=== PATIENT | male | born 1960 | race Asian ===

== ENCOUNTER → 2019-08-18 17:31 | Outpatient (CLI) | payer OTHER, SELFPAY ==
--- NOTE | 2019-08-18 17:36 | DI.MRI.S_ITS ---
PROCEDURE: MR SHOULDER RT WO CON INDICATIONS: PAIN IN RIGHT SHOULDER TECHNIQUE: Noncontrast oblique coronal T2 fast spin echo with fat saturation, oblique sagittal T1 spin echo and T2 fast spin echo with fat saturation, axial T1 spin echo and T2 fast spin echo with fat saturation through the shoulder. COMPARISON: None. FINDINGS: Image quality: Excellent. Rotator cuff: Post surgical changes are noted in greater tuberosity of humeral head from prior rotator cuff tendon repair. Tendinosis and low to moderate grade articular and bursal surface partial-thickness tear involving distal supraspinatus at its insertion the humeral head is seen extending to musculotendinous junction. Distal infraspinatus and subscapularis tendinosis is seen. No full-thickness rotator cuff tendon rupture. Sagittal images demonstrate no significant muscle atrophy. Bones and bursae: No bone marrow contusions or fractures. Postsurgical widening of acromioclavicular joint is seen. Small amount of subacromial subdeltoid bursal fluid and glenohumeral joint fluid is seen. No gross intra-articular loose body. Capsule and soft tissues: In the absence of intra-articular contrast, the labrum and glenohumeral ligaments appear intact. The long head of the biceps tendon demonstrates normal location and morphology. The rotator interval appears normal, without fibrosis. The coracohumeral ligament is normal in thickness. IMPRESSION: 1. Postsurgical changes from prior rotator cuff tendon repair. Expected postsurgical widening of the acromioclavicular joint. No acute fracture or dislocation. 2. Tendinosis and low to moderate grade articular and bursal surface partial-thickness tear involving distal supraspinatus extending to musculotendinous junction. Distal infraspinatus and subscapularis tendinosis. No full-thickness rotator cuff tendon rupture. 3. No evidence of focal labral tear. Dictated by: Rickie Pineda M.D. on 08/19/2019 at 9:06 Approved by: Rickie Pineda M.D. on 08/19/2019 at 9:10
== END ==
DX: M25.511 Pain in right shoulder (principal); M75.111 Incomplete rotator cuff tear or rupture of right shoulder, not specified as traumatic
CPT/HCPCS: 73221

== ENCOUNTER 2021-10-17 08:08 | Day surgery (SDC) | payer OTHER, SELFPAY ==
--- NOTE | 2021-10-17 | PATH_ITS ---
[facility] Accession Number: [id number] . 01 Material submitted: . PART A: colon - ASCENDING COLON PART B: cecum - CECUM . 01 Diagnosis: A. Ascending Colon, Biopsy: Tubular adenoma. . B. Cecum, Biopsy: Tubular adenoma. MRV 10/19/2021 1410 Local . 01 Electronically signed: . Nelia Rogers MD, Pathologist NPI- [id number] . 01 Gross description: . Part A: ASCENDING COLON: Received in formalin are 2 fragment(s) of corrigan, soft tissue measuring 0.3 x 0.3 x 0.2 cm to 0.3 x 0.3 x 0.3 cm submitted entirely in 1 cassette(s) Part B: CECUM: Received in formalin are 2 fragment(s) of corrigan, soft tissue measuring 0.2 x 0.2 x 0.2 cm to 0.3 x 0.3 x 0.2 cm submitted entirely in 1 cassette(s) /KAVITA 10/18/2021 0149 Local . 01 Pathologist provided ICD-10: D12.0, D12.2 . 01 CPT . 608077, 924571 Specimen Comment: A courtesy copy of this report has been sent to [phone] Performed at: 01 [facility] [address] [place] [address] [address], [place], [place] [id number] MD Jez Kilpatrick MD Phone: [phone]
[2021-10-17 08:23] VITALS: BMI 28.8
[2021-10-17 08:33] VITALS: BP 144/85; PULSE 71; RESP 16; O2SAT 96
[2021-10-17 08:40] LABS: COVID19 -Nasal RAPID Negative (Negative)
[2021-10-17] MEDS: LACTATED RINGERS 1,000 ML 150 ML IV (08:44)
--- NOTE | 2021-10-17 09:26 | PM.HP.1 ---
History of Present Illness History of Present Illness Date Patient Seen: 10/17/21 Time Patient Seen: 09:26 Chief complaint: SDC Narrative: The patient presents for colorectal screening. Most recent colonoscopy 10 years ago normal. No personal or family history of colon cancer. On further history denies any recent gastrointestinal symptoms. No nausea, vomiting, abdominal pain, loss of appetite, unexplained weight loss, change in bowel habits, diarrhea, constipation, melena, hematochezia, or bright red blood per rectum. Patient History Medical History HTN (hypertension) Family & Social History Social History: household members spouse Tobacco & Substance use: Smoking Status Never smoker alcohol intake current alcohol intake frequency holiday/special occasion Substance Use Type does not use Meds Home Medications and Allergies Home Medications Medication Instructions Recorded Confirmed Type amlodipine 5 mg tablet (Norvasc) ##0 10/27/15 History atorvastatin 20 mg tablet (Lipitor) ##0 10/27/15 History meclizine 25 mg tablet 25 mg PO Q6HP PRN #20 tabs 10/27/15 Rx multivitamin (Multiple Vitamins ##0 10/27/15 History tablet) tadalafil 10 mg tablet (Cialis) ##0 10/27/15 History sodium,potassium,mag sulfates 17.5 See Rx Instructions PO .COMPLEX 09/20/21 Rx gram-3.13 gram-1.6 gram oral soln #354 mL (Suprep Bowel Prep Kit) ondansetron 4 mg disintegrating 4 mg sublingual Q6HP PRN Nausea 10/17/21 History tablet Allergies Allergy/AdvReac Type Severity Reaction Status Date / Time No Known Drug Allergies Allergy Verified 10/17/21 08:37 Exam Vital Signs (past 8 hours): - 10/17/21 08:33 Pulse Rate 71 Respiratory Rate 16 Blood Pressure 144/85 H Pulse Oximetry 96 Oxygen Delivery Method Room Air Oxygen Delivery Method Room Air Narrative Exam Narrative: General adult male alert oriented no acute distress Abdomen soft nontender nondistended Objective Labs Labs: Laboratory Results - last 24 hr 10/17/21 08:22 SARS-CoV-2 (PCR) Negative Assessment & Plan Assessment and plan (1) Screening for colon cancer: Status: Acute Assessment & Plan narrative: The patient requires colorectal screening and colonoscopy is recommended. Technical details were discussed. Risks, benefits, alternatives explained. Risks including but not limited to myocardial infarction, aspiration, bleeding, pain, missed lesion, incomplete examination, need for further radiographic studies, colonic perforation, and need for major abdominal surgery were discussed. All questions were answered to their satisfaction, and they are in agreement with this plan. Time Spent With Patient Critical Care time: I spent a total of [] minutes of critical care time on this patient's care today; this time is exclusive of procedural time.
--- NOTE | 2021-10-17 09:33 | P.OP.COLON_ITS ---
Operative Date/Time/Diagnoses Date of procedure: 10/17/21 Time of procedure: 09:33 Pre-op diagnosis: Screening Post-op diagnosis: same Procedure & Clinicians Study performed: Colonoscopy Same procedure as scheduled: Yes Indications: Screening Surgeon: Gary Humphreys Procedure Notes Procedure in detail: Medications: Conscious sedation using 4mg IV midazolam and 100mcg IV of fentanyl The history and physical was performed/updated and the patient is ASA class is 2. The procedure was discussed in detail with the patient. Potential risks complications including infection, bleeding, missed diagnosis, perforation, need for surgery, and were explained. Their questions were answered and informed consent was obtained. Patient was brought to the procedure room and placed standard monitoring equipment. The patient's vital signs were monitored continuously throughout the entire procedure. Prior to starting time-out was performed. The patient was placed in the left lateral recumbent position. Procedural sedation was adminis tered. Examination began with a thorough inspection of the perianal area there was no evidence of fissures, fistulae, external hemorrhoids or cutaneous malignancy. The colonoscopy scope was then placed into the anal canal and was advanced to the cecum, which was identified by the ileocecal valve, the appendiceal orifice and the confluence of the taenia. The scope was then slowly withdrawn examining colon thoroughly in all directions, irrigating it of any residual stool. FINDINGS 1. Ascending colon two 5 mm polyps removed with biopsy forceps 2. Cecum 3 mm polyp removed with biopsy forceps The patient tolerated the procedure well. They will be discharged once criteria are met. The prep was of good/excellent quality. The withdrawl time was 8 minutes. The sedation time was 20 minutes. Specimen(s): other (Ascending colon x2, cecum x1 polyps) Complications: none Impression: Colonic polyps Post-procedure Recommendations: Colonoscopy in 5 years Disposition: same day surgery
[2021-10-17] MEDS: MIDAZOLAM 5 MG/5 ML VIAL IV (09:49)
[2021-10-17] MEDS: fentaNYL 100 MCG/2 ML INJ IV (09:51)
[2021-10-17 10:01] VITALS: BP 128/78; PULSE 64; RESP 12; TEMP 36.1; O2SAT 96
[2021-10-17 10:06] VITALS: BP 117/71; PULSE 50; RESP 12; O2SAT 95
[2021-10-17 10:11] VITALS: BP 121/72; PULSE 50; RESP 12; O2SAT 98
[2021-10-17 10:16] VITALS: BP 122/79; PULSE 60; RESP 18; TEMP 36.4; O2SAT 94
[2021-10-17 10:40] VITALS: BP 131/81; PULSE 77; RESP 16; TEMP 36.5; O2SAT 95
== END 2021-10-17 10:45 | disposition home or self-care (01) ==
PROVIDERS: PCP Family Medicine; Referring Provider Surgery; Visit Provider Surgery
PROC: 0DJD8ZZ Inspection of Lower Intestinal Tract, Via Natural or Artificial Opening Endoscopic (ICD-10-PCS; CPT 45378; principal; 2021-10-17 10:00)
DX: Z12.11 Encounter for screening for malignant neoplasm of colon (principal); Z20.822 Contact with and (suspected) exposure to COVID-19; D12.2 Benign neoplasm of ascending colon; D12.0 Benign neoplasm of cecum
CPT/HCPCS: 45380; 87635; 99152; C9803; J2250; J3010

== ENCOUNTER → 2022-09-24 09:07 | Outpatient (CLI) | payer OTHER, SELFPAY ==
--- NOTE | 2022-09-24 | DI.MRI.S_ITS ---
PROCEDURE: MR KNEE LT WO CON INDICATIONS: PAIN IN LEFT KNEE TECHNIQUE: Noncontrast sagittal PD fast spin echo and T2 fast spin echo with fat saturation, sagittal 3-D FLASH with fat saturation; coronal T1 spin echo and PD fast spin echo with fat saturation, and axial PD fast spin echo with fat saturation through the knee. COMPARISON: None. FINDINGS: Image quality: Excellent. Menisci: There is linear oblique high T2 signal intensity traversing the inner, middle, and peripheral thirds of the posterior horn medial meniscus, demonstrating inferior articular surface extension, indicating oblique tearing. Radial tearing of the medial meniscal body is present. There is linear horizontal high T2 signal intensity within the peripheral 3rd of the lateral meniscal body and posterior horn without definite articular surface extension to indicate tear. Cruciate ligaments: The anterior and posterior cruciate ligaments appear intact. Medial structures: The medial collateral ligament appears intact. Visualized portions of the pes anserinus tendons appear normal. No abnormal bursal fluid. Lateral structures: The lateral collateral ligament, long and short heads of the biceps femoris tendon appear intact. The popliteus tendon appears normal. Iliotibial band appears normal. Anterior structures: The quadriceps and patellar tendons appear intact. Patellar alignment is normal. No femoral trochlear dysplasia or ventral trochlear prominence. No edema in the infrapatellar fat pad. Bones and cartilage: No fractures. There is moderate ill-defined T2 signal elevation within the mid and anterior weight-bearing aspects of the medial tibial plateau. Mild ill-defined T2 signal elevation within the mid weight-bearing aspect of the medial femoral condyle. Mild subchondral degenerative marrow edema within the medial patellar facet and medial femoral trochlea. Mild tricompartmental periarticular osteophyte formation. Moderate articular cartilage loss diffusely overlies the weight-bearing aspects of the medial femoral condyle and medial tibial plateau. Articular cartilage fibrillation overlies the medial and lateral patellar facets. Superimposed high-grade articular cartilage loss overlies the medial aspect of the medial patellar facet. Joint space: There is a moderate knee joint effusion and a trace Webb's cyst. Normal appearing synovial plicae are incidentally noted. IMPRESSION: 1. Tricompartmental osteoarthritis with associated articular cartilage loss. 2. Complex tearing of the medial meniscus. 3. Knee joint effusion and Webb's cyst. Dictated by: Klaus Knight M.D. on 09/24/2022 at 12:09 Approved by: Klaus Knight M.D. on 09/24/2022 at 13:10
== END ==
PROVIDERS: PCP Family Medicine; Referring Provider Family Medicine; Visit Provider Family Medicine
DX: S83.232A Complex tear of medial meniscus, current injury, left knee, initial encounter (principal); M17.12 Unilateral primary osteoarthritis, left knee; M71.22 Synovial cyst of popliteal space [Baker], left knee; M25.462 Effusion, left knee; M23.8X9 Other internal derangements of unspecified knee; M25.562 Pain in left knee
CPT/HCPCS: 73721

== ENCOUNTER → 2023-07-13 10:18 | Outpatient (CLI) | payer MEDICARE, OTHER, SELFPAY ==
--- NOTE | 2023-07-13 | DI.MRI.S_ITS ---
PROCEDURE: MR ELBOW LT W CON INDICATIONS: lt elbow pain TECHNIQUE: Noncontrast coronal proton density fast spin echo and T2 fast spin echo with fat saturation, axial and sagittal T1 spin echo and T2 fast spin echo with fat saturation through the elbow. COMPARISON: None. FINDINGS: Image quality: Excellent. Lateral structures: The lateral ulnar collateral ligament and radial collateral ligament both appear thickened. The overlying common extensor tendon appears thickened with intrasubstance T2 hyperintense signal at its lateral epicondylar insertion. Medial structures: The ulnar collateral ligament appears intact. The overlying common flexor tendon appears normal. The ulnar nerve appears normal in size and signal within the cubital tunnel. Anterior structures: The biceps and brachialis tendons both appear intact as they insert onto the proximal radius and ulna, respectively. No bicipitoradial bursal fluid. The median and radial neurovascular bundles appear normal; no focal muscle atrophy to suggest nerve impingement. Posterior structures: Distal triceps tendinosis is seen at its proximal olecranon insertion. No olecranon bursal fluid. Bone and cartilage: [id number] elbow joint osteoarthritic changes are seen. Subchondral cystic changes are noted involving trochlear with mild edema in medial epicondyle suggestive of osteochondral injuries. Small osteochondral injury involving lateral portion of capitellum at its articulation with radial head is also seen. No fracture or dislocation. IMPRESSION: 1. Osteoarthritic changes in elbow joint with osteochondral injuries involving trochlear with surrounding edema. Small osteochondral injury also noted involving lateral periphery of capitellum. No fracture or dislocation. No significant joint effusion or loose bodies. 2. Suggestion of lateral epicondylitis as above. 3. Distal triceps tendinosis at its proximal olecranon insertion. Dictated by: Rickie Pineda M.D. on 07/15/2023 at 10:39 Approved by: Rickie Pineda M.D. on 07/15/2023 at 10:46
--- NOTE | 2023-07-13 10:21 | DI.MRI.S_ITS ---
PROCEDURE: MR KNEE LT WO CON INDICATIONS: Left knee pain. TECHNIQUE: Noncontrast sagittal PD fast spin echo and T2 fast spin echo with fat saturation, sagittal 3-D FLASH with fat saturation; coronal T1 spin echo and PD fast spin echo with fat saturation, and axial PD fast spin echo with fat saturation through the knee. COMPARISON: [facility], MR, MR KNEE LT WO CON, 09/24/2022, 9:26. FINDINGS: Image quality: Excellent. Menisci: There is oblique tear involving the posterior horn and body of the medial meniscus extending to the inferior articular surface. The body of the medial meniscus is truncated. The lateral meniscus is intact. The meniscal root ligaments appear intact. Cruciate ligaments: The anterior cruciate ligament is thickened with increased T2 signal, likely sequelae of remote partial tear/scarring. The posterior cruciate ligament is intact. Medial structures: The medial collateral ligament appears intact. There is tendinosis of the semimembranosus tendon insertions. The meniscocapsular junction appears intact. Visualized portions of the pes anserinus tendons appear normal. No abnormal bursal fluid. Lateral structures: The lateral collateral ligament, long and short heads of the biceps femoris tendon appear intact. The popliteus tendon appears normal. Iliotibial band appears normal. Anterior structures: The quadriceps and patellar tendons appear intact. Patellar alignment is normal. No femoral trochlear dysplasia or ventral trochlear prominence. No edema in the infrapatellar fat pad. Bones and cartilage: No bone marrow contusions or fractures. Moderate tricompartmental cartilage thinning and fibrillation. There is near cartilage denuded articular surface in the medial femoral condyle with subchondral edema. Joint space: There is moderate knee joint fluid. No Webb's cyst. Normal appearing synovial plicae are incidentally noted. IMPRESSION: 1. Medial meniscal tear involving the posterior horn and body. The body of the medial meniscus is truncated 2. Suspect chronic partial tear/scarring of ACL. 3. Tendinosis of the semimembranous tendon insertions. 4. Moderate knee joint effusion. 5. Tricompartmental osteoarthritis, most pronounced in the medial femorotibial compartment. Dictated by: Tian Encarnacion M.D. on 07/15/2023 at 8:06 Approved by: Tian Encarnacion M.D. on 07/16/2023 at 8:39
== END ==
PROVIDERS: PCP Family Medicine; Referring Provider Family Medicine; Visit Provider Family Medicine
DX: S83.242A Other tear of medial meniscus, current injury, left knee, initial encounter (principal); M17.12 Unilateral primary osteoarthritis, left knee; M25.462 Effusion, left knee; M25.562 Pain in left knee; M67.824 Other specified disorders of tendon, left elbow; R53.1 Weakness; R29.898 Other symptoms and signs involving the musculoskeletal system
CPT/HCPCS: 73221; 73721

== ENCOUNTER → 2023-07-15 06:56 | Outpatient (CLI) | payer MEDICARE, OTHER, SELFPAY ==
--- NOTE | 2023-07-15 06:57 | DI.US.S_ITS ---
PROCEDURE: US CAROTID DOPPLER BI INDICATIONS: Mixed hyperlipidemia Essential (primary) htn TECHNIQUE: Color and pulse Doppler interrogation was performed of both carotid systems, with image documentation and velocity measurements. COMPARISON: None. FINDINGS: Stenosis calculations are based on SRU (Society of Radiologists in Ultras[employer]) criteria. Right side: Brachial blood pressure: 152/77 mm Hg. Common carotid artery peak systolic velocity: 51 cm/sec. Internal carotid artery peak systolic velocity: 47 cm/sec. Internal carotid artery end diastolic velocity: 14 cm/sec. External carotid artery peak systolic velocity: 36 cm/sec. ICA/CCA peak systolic ratio: 0.9. Garner scale imaging description: Mild atheromatous plaque is present at the bifurcation. Percent internal carotid artery stenosis: Less than 50% stenosis. Vertebral artery: Flow direction is antegrade. Left side: Brachial blood pressure: 161/78 mm Hg. Common carotid artery peak systolic velocity: 50 cm/sec. Internal carotid artery peak systolic velocity: 52 cm/sec. Internal carotid artery end diastolic velocity: 46 cm/sec. External carotid artery peak systolic velocity: 57 cm/sec. ICA/CCA peak systolic ratio: 1.4 . Garner scale imaging description: Mild atheromatous plaque is present at the bifurcation. Percent internal carotid artery stenosis: Less than 50% stenosis. Vertebral artery: Flow direction is antegrade. IMPRESSION: Less than 50% stenosis of the bilateral internal carotid arteries. Dictated by: Bonnie Pappas M.D. on 07/15/2023 at 11:38 Approved by: Bonnie Pappas M.D. on 07/15/2023 at 11:48
== END ==
PROVIDERS: PCP Family Medicine; Referring Provider Family Medicine; Visit Provider Family Medicine
DX: I65.23 Occlusion and stenosis of bilateral carotid arteries (principal); E78.2 Mixed hyperlipidemia; I10 Essential (primary) hypertension; G47.33 Obstructive sleep apnea (adult) (pediatric); R41.89 Other symptoms and signs involving cognitive functions and awareness; Z82.49 Family history of ischemic heart disease and other diseases of the circulatory system
CPT/HCPCS: 93880